=== PATIENT | male | born 1960 | race Caucasian/White ===

== ENCOUNTER 2017-11-17 10:09 | Outpatient (CLI) | payer BC, SELFPAY ==
[2017-11-17 11:25] LABS: INR 2.7 (1.0-3.5); Prothrombin Time 25.2 sec (9.3-10.8)
== END 2017-11-17 10:10 ==
PROVIDERS: PCP Family Medicine; Visit Provider Family Medicine
DX: Z79.01 Long term (current) use of anticoagulants (principal); R69 Illness, unspecified
CPT/HCPCS: 36415; 85610

== ENCOUNTER 2017-12-21 12:09 | Outpatient (CLI) | payer BC, SELFPAY ==
[2017-12-21 12:50] LABS: Abs Immature Grans 0.01 k/cumm (0.0-0.09); Absolute Basophil Count 0.01 k/cumm (0.0-0.2); Absolute Eosinophil Count 0.12 k/cumm (0.0-0.7); Absolute Lymphocyte Count 1.31 k/cumm (1.2-3.4); Absolute Monocyte Count 0.24 k/cumm (0.11-0.7); Absolute Neutrophil Count 2.76 k/cumm (1.2-6.7); Basophils % 0.2; Eosinophils % 2.7; HCT 44.8 % (40.0-50.0); HGB 14.6 g/dL (13.5-17.5); Immature Grans % 0.2; Lymphocytes % 29.4; Mean Corp. HGB Concentration 32.6 g/dL (32.0-36.0); Mean Corpuscular Hemoglobin 31.2 pg (27.0-33.0); Mean Corpuscular Volume 95.7 fL (80-95); Monocytes % 5.4; Neutrophils % 62.1; Platelet Count 180 x1000/uL (130-400); RBC 4.68 m/cumm (4.50-6.00); RBC Distribution Width 13.2 % (11.8-14.1); White Blood Cell Count 4.45 k/cumm (4.4-10.8)
[2017-12-21 13:03] LABS: INR 2.9 (1.0-3.5); Prothrombin Time 26.9 sec (9.3-10.8)
[2017-12-22 09:41] LABS: PSA, Screening 1.7 ng/ml (0-3.5)
[2017-12-22 10:31] LABS: Hepatitis C Ab w Rflx HCV PCR Negative (NEGAT)
== END 2017-12-21 12:29 ==
PROVIDERS: PCP Family Medicine; Visit Provider Family Medicine
DX: Z00.00 Encounter for general adult medical examination without abnormal findings (principal); Z11.59 Encounter for screening for other viral diseases; Z79.01 Long term (current) use of anticoagulants; Z12.5 Encounter for screening for malignant neoplasm of prostate
CPT/HCPCS: 36415; 84153; 86803; 85025; 85610

== ENCOUNTER 2018-01-20 08:37 | Outpatient (CLI) | payer BC, SELFPAY ==
[2018-01-20 09:22] LABS: INR 2.6 (1.0-3.5); Prothrombin Time 24.3 sec (9.3-10.8)
== END 2018-01-20 08:57 ==
PROVIDERS: PCP Family Medicine; Visit Provider Family Medicine
DX: Z79.01 Long term (current) use of anticoagulants (principal)
CPT/HCPCS: 36415; 85610

== ENCOUNTER 2018-02-18 07:20 | Outpatient (CLI) | payer BC, SELFPAY ==
[2018-02-18 09:07] LABS: INR 2.3 (1.0-3.5); Prothrombin Time 21.4 sec (9.3-10.8)
== END 2018-02-18 07:40 ==
PROVIDERS: PCP Family Medicine; Visit Provider Family Medicine
DX: Z79.01 Long term (current) use of anticoagulants (principal)
CPT/HCPCS: 36415; 85610

== ENCOUNTER 2018-03-21 06:31 | Outpatient (CLI) | payer BC, SELFPAY ==
[2018-03-21 08:53] LABS: INR 2.4 (1.0-3.5); Prothrombin Time 23.1 sec (9.3-10.8)
== END 2018-03-21 06:51 ==
PROVIDERS: PCP Family Medicine; Visit Provider Family Medicine
DX: Z79.01 Long term (current) use of anticoagulants (principal)
CPT/HCPCS: 36415; 85610

== ENCOUNTER 2018-04-21 02:29 | Outpatient (CLI) | payer BC, SELFPAY ==
[2018-04-21 11:58] LABS: INR 2.8 (1.0-3.5); Prothrombin Time 28.6 sec (9.3-11.0)
[2018-04-21 12:46] LABS: ALT 49 U/L (12-78); AST 27 U/L (15-37); Albumin 3.2 g/dL (3.4-5.0); Alkaline Phosphatase 68 U/L (46-116); Bilirubin, Total 0.2 mg/dL (0.2-1.0); Total Protein 7.2 g/dL (6.4-8.2)
[2018-04-21 13:04] LABS: Cholesterol 224 mg/dL (50-200); HDL Cholesterol 55 mg/dL (40-60); LDL CHOLESTEROL 147 mg/dL (<100); Triglyceride 108 mg/dL (30-150)
== END 2018-04-21 02:49 ==
PROVIDERS: PCP Family Medicine; Visit Provider Family Medicine
DX: Z79.01 Long term (current) use of anticoagulants (principal); R78.5 Finding of other psychotropic drug in blood
CPT/HCPCS: 36415; 80061; 80076; 83721; 85610

== ENCOUNTER 2018-05-23 10:22 | Outpatient (CLI) | payer BC, SELFPAY ==
[2018-05-23 12:05] LABS: INR 2.3 (0.9-1.1); Prothrombin Time 23.6 sec (9.3-11.0)
== END 2018-05-23 10:42 ==
PROVIDERS: PCP Family Medicine; Visit Provider Family Medicine
DX: Z79.01 Long term (current) use of anticoagulants (principal); R69 Illness, unspecified
CPT/HCPCS: 36415; 85610

== ENCOUNTER 2018-06-21 08:40 | Outpatient (CLI) | payer BC, SELFPAY ==
[2018-06-21 10:08] LABS: INR 2.2 (0.9-1.1); Prothrombin Time 21.9 sec (9.3-11.0)
== END 2018-06-21 09:00 ==
PROVIDERS: PCP Family Medicine; Visit Provider Family Medicine
DX: Z79.01 Long term (current) use of anticoagulants (principal)
CPT/HCPCS: 36415; 85610

== ENCOUNTER 2018-07-19 06:43 | Outpatient (CLI) | payer BC, SELFPAY ==
[2018-07-19 11:12] LABS: INR 2.4 (0.9-1.1); Prothrombin Time 23.8 sec (9.3-11.0)
== END 2018-07-19 07:03 ==
PROVIDERS: PCP Family Medicine; Visit Provider Family Medicine
DX: Z79.01 Long term (current) use of anticoagulants (principal)
CPT/HCPCS: 36415; 85610

== ENCOUNTER 2018-08-22 06:37 | Outpatient (CLI) | payer BC, SELFPAY ==
[2018-08-22 09:25] LABS: INR 2.4 (0.9-1.1); Prothrombin Time 24.6 sec (9.3-11.0)
== END 2018-08-22 06:57 ==
PROVIDERS: PCP Family Medicine; Visit Provider Family Medicine
DX: Z79.01 Long term (current) use of anticoagulants (principal)
CPT/HCPCS: 36415; 85610

== ENCOUNTER 2018-09-21 01:19 | Outpatient (CLI) | payer BC, SELFPAY ==
[2018-09-21 11:15] LABS: INR 2.6 (0.9-1.1); Prothrombin Time 26.3 sec (9.3-11.0)
== END 2018-09-21 01:39 ==
PROVIDERS: PCP Family Medicine; Visit Provider Family Medicine
DX: Z79.01 Long term (current) use of anticoagulants (principal); Z86.72 Personal history of thrombophlebitis
CPT/HCPCS: 36415; 85610

== ENCOUNTER 2018-10-24 13:05 | Outpatient (CLI) | payer BC, SELFPAY ==
[2018-10-24 15:03] LABS: INR 2.1 (0.9-1.1); Prothrombin Time 21.4 sec (9.3-11.0)
== END 2018-10-24 13:25 ==
PROVIDERS: PCP Family Medicine; Visit Provider Family Medicine
DX: Z79.01 Long term (current) use of anticoagulants (principal); Z86.72 Personal history of thrombophlebitis
CPT/HCPCS: 36415; 85610

== ENCOUNTER 2018-10-31 09:53 | Outpatient (CLI) | payer BC, SELFPAY ==
--- NOTE | 2018-10-31 14:46 | DI.RAD_ITS ---
SYMPTOM/DIAGNOSIS: KNEE PAIN BILATERAL KNEES AND LEG LENGTH EXAMINATION: Left knee: The articular surfaces are well maintained. The bones are intact and normally mineralized. The soft tissues are grossly unremarkable. IMPRESSION: No acute abnormality. Right knee: There are post surgical changes of a prior anterior cruciate ligament repair. There is moderately severe narrowing of the medial femoral tibial joint space and mild narrowing of the patellofemoral joint. Periarticular spurring is seen involving both the medial femoral tibial joint and the patellofemoral joint. No acute fracture or dislocation is appreciated. The soft tissues are unremarkable. IMPRESSION: Moderately severe degenerative changes of the right knee. LEG LENGTH: The right lower extremity measures 105.2 cm. The left lower extremity measures 106.9 cm. Degenerative changes are seen in the right knee with findings of a prior right anterior cruciate ligament repair.
== END 2018-10-31 10:13 ==
PROVIDERS: PCP Family Medicine; Visit Provider Student in an Organized Health Care Education/Training Program
DX: M25.561 Pain in right knee (principal); M17.11 Unilateral primary osteoarthritis, right knee; M21.70 Unequal limb length (acquired), unspecified site; Z98.890 Other specified postprocedural states
CPT/HCPCS: 73560; 77073

== ENCOUNTER 2018-11-17 01:15 | Outpatient (CLI) | payer BC, SELFPAY ==
[2018-11-17 14:11] LABS: INR 2.2 (0.9-1.1); Prothrombin Time 22.1 sec (9.3-11.0)
== END 2018-11-17 01:35 ==
PROVIDERS: PCP Family Medicine; Visit Provider Family Medicine
DX: Z79.01 Long term (current) use of anticoagulants (principal)
CPT/HCPCS: 36415; 85610

== ENCOUNTER 2018-12-20 01:12 | Outpatient (CLI) | payer BC, SELFPAY ==
[2018-12-20 10:13] LABS: INR 2.2 (0.9-1.1); Prothrombin Time 22.1 sec (9.3-11.0)
== END 2018-12-20 01:32 ==
PROVIDERS: PCP Family Medicine; Visit Provider Family Medicine
DX: Z79.01 Long term (current) use of anticoagulants (principal)
CPT/HCPCS: 36415; 85610

== ENCOUNTER 2019-02-17 10:08 | Outpatient (CLI) | payer BC, SELFPAY ==
[2019-02-17 14:24] LABS: INR 2.3 (0.9-1.1); Prothrombin Time 22.7 sec (9.3-11.0)
== END 2019-02-17 10:28 ==
PROVIDERS: PCP Family Medicine; Visit Provider Family Medicine
DX: I82.5Z9 Chronic embolism and thrombosis of unspecified deep veins of unspecified distal lower extremity (principal); Z79.01 Long term (current) use of anticoagulants
CPT/HCPCS: 36415; 85610

== ENCOUNTER 2019-03-23 12:57 | Outpatient (CLI) | payer BC, SELFPAY ==
[2019-03-23 10:59] LABS: INR 2.5 (0.9-1.1); Prothrombin Time 24.6 sec (9.3-11.0)
== END 2019-03-23 13:17 ==
PROVIDERS: PCP Family Medicine; Visit Provider Family Medicine
DX: I82.492 Acute embolism and thrombosis of other specified deep vein of left lower extremity (principal); Z79.01 Long term (current) use of anticoagulants
CPT/HCPCS: 36415; 85610

== ENCOUNTER 2019-04-20 08:09 | Outpatient (CLI) | payer BC, SELFPAY ==
[2019-04-20 11:24] LABS: INR 2.4 (0.9-1.1); Prothrombin Time 23.6 sec (9.3-11.0)
== END 2019-04-20 08:29 ==
PROVIDERS: PCP Family Medicine; Visit Provider Family Medicine
DX: I82.492 Acute embolism and thrombosis of other specified deep vein of left lower extremity (principal); Z79.01 Long term (current) use of anticoagulants
CPT/HCPCS: 36415; 85610

== ENCOUNTER 2019-05-29 07:48 | Outpatient (CLI) | payer BC, SELFPAY ==
[2019-05-29 08:57] LABS: INR 2.5 (0.9-1.1); Prothrombin Time 24.4 sec (9.3-11.0)
== END 2019-05-29 08:08 ==
PROVIDERS: PCP Family Medicine; Visit Provider Family Medicine
DX: I82.492 Acute embolism and thrombosis of other specified deep vein of left lower extremity (principal); Z79.01 Long term (current) use of anticoagulants
CPT/HCPCS: 36415; 85610

== ENCOUNTER 2019-06-20 11:03 | Outpatient (CLI) | payer BC, SELFPAY ==
[2019-06-20 13:27] LABS: INR 1.8 (0.9-1.1); Prothrombin Time 18.2 sec (9.3-11.0)
== END 2019-06-20 11:23 ==
PROVIDERS: PCP Family Medicine; Visit Provider Family Medicine
DX: I82.492 Acute embolism and thrombosis of other specified deep vein of left lower extremity (principal); Z79.01 Long term (current) use of anticoagulants
CPT/HCPCS: 36415; 85610

== ENCOUNTER 2019-08-21 03:27 | Outpatient (CLI) | payer BC, SELFPAY ==
[2019-08-21 16:52] LABS: INR 2.7 (0.9-1.1); Prothrombin Time 26.8 sec (9.3-11.0)
== END 2019-08-21 03:47 ==
PROVIDERS: PCP Family Medicine; Visit Provider Family Medicine
DX: I82.492 Acute embolism and thrombosis of other specified deep vein of left lower extremity (principal); Z79.01 Long term (current) use of anticoagulants
CPT/HCPCS: 36415; 85610

== ENCOUNTER 2019-09-18 10:13 | Outpatient (CLI) | payer BC, SELFPAY ==
[2019-09-18 15:41] LABS: INR 2.2 (0.9-1.1); Prothrombin Time 21.3 sec (9.3-11.0)
== END 2019-09-18 10:33 ==
PROVIDERS: PCP Family Medicine; Visit Provider Family Medicine
DX: I82.492 Acute embolism and thrombosis of other specified deep vein of left lower extremity (principal); Z79.01 Long term (current) use of anticoagulants
CPT/HCPCS: 36415; 85610

== ENCOUNTER 2019-10-24 03:27 | Outpatient (CLI) | payer BC, SELFPAY ==
[2019-10-24 08:31] LABS: INR 2.8 (0.9-1.1); Prothrombin Time 27.1 sec (9.3-11.0)
== END 2019-10-24 03:47 ==
PROVIDERS: PCP Family Medicine; Visit Provider Family Medicine
DX: I82.492 Acute embolism and thrombosis of other specified deep vein of left lower extremity (principal)
CPT/HCPCS: 36415; 85610

== ENCOUNTER 2019-11-20 02:08 | Outpatient (CLI) | payer BC, SELFPAY ==
[2019-11-20 12:29] LABS: Prothrombin Time 28.9 sec (9.3-11.0)
== END 2019-11-20 02:28 ==
PROVIDERS: PCP Family Medicine; Visit Provider Family Medicine
DX: I82.409 Acute embolism and thrombosis of unspecified deep veins of unspecified lower extremity (principal)
CPT/HCPCS: 36415; 85610

== ENCOUNTER 2019-12-05 02:55 | Outpatient (CLI) | payer BC, SELFPAY ==
[2019-12-05 12:48] LABS: INR 2.9 (0.9-1.1); Prothrombin Time 28.6 sec (9.3-11.0)
== END 2019-12-05 03:15 ==
PROVIDERS: PCP Family Medicine; Visit Provider Family Medicine
DX: I82.492 Acute embolism and thrombosis of other specified deep vein of left lower extremity (principal)
CPT/HCPCS: 36415; 85610

== ENCOUNTER 2020-01-18 05:03 | Outpatient (CLI) | payer BC, SELFPAY ==
[2020-01-18 15:52] LABS: INR 2.5 (0.9-1.1); Prothrombin Time 24.4 sec (9.3-11.0)
== END 2020-01-18 05:23 ==
PROVIDERS: PCP Family Medicine; Visit Provider Family Medicine
DX: I82.409 Acute embolism and thrombosis of unspecified deep veins of unspecified lower extremity (principal); Z79.01 Long term (current) use of anticoagulants
CPT/HCPCS: 36415; 85610

== ENCOUNTER 2020-02-23 03:30 | Outpatient (CLI) | payer BC, SELFPAY ==
[2020-02-23 15:15] LABS: INR 2.2 (0.9-1.1); Prothrombin Time 22.1 sec (9.3-11.0)
== END 2020-02-23 03:50 ==
PROVIDERS: PCP Family Medicine; Visit Provider Family Medicine
DX: I82.409 Acute embolism and thrombosis of unspecified deep veins of unspecified lower extremity (principal); Z79.01 Long term (current) use of anticoagulants
CPT/HCPCS: 36415; 85610

== ENCOUNTER 2020-03-19 03:54 | Outpatient (CLI) | payer BC, SELFPAY ==
[2020-03-19 15:17] LABS: INR 3.4 (0.9-1.1); Prothrombin Time 32.9 sec (9.3-11.0)
== END 2020-03-19 04:14 ==
PROVIDERS: PCP Family Medicine; Visit Provider Family Medicine
DX: Z79.01 Long term (current) use of anticoagulants (principal)
CPT/HCPCS: 36415; 85610

== ENCOUNTER 2020-03-27 03:40 | Outpatient (CLI) | payer BC, SELFPAY ==
[2020-03-27 15:13] LABS: INR 2.2 (0.9-1.1); Prothrombin Time 21.4 sec (9.3-11.0)
== END 2020-03-27 04:00 ==
PROVIDERS: PCP Family Medicine; Visit Provider Family Medicine
DX: I82.492 Acute embolism and thrombosis of other specified deep vein of left lower extremity (principal); Z79.01 Long term (current) use of anticoagulants
CPT/HCPCS: 36415; 85610

== ENCOUNTER 2020-04-16 03:22 | Outpatient (CLI) | payer BC, SELFPAY ==
[2020-04-16 09:35] LABS: Prothrombin Time 19.8 sec (9.3-11.0)
== END 2020-04-16 03:42 ==
PROVIDERS: PCP Family Medicine; Visit Provider Family Medicine
DX: I82.492 Acute embolism and thrombosis of other specified deep vein of left lower extremity (principal); Z79.01 Long term (current) use of anticoagulants
CPT/HCPCS: 36415; 85610

== ENCOUNTER 2020-05-15 03:18 | Outpatient (CLI) | payer BC, SELFPAY ==
[2020-05-15 15:29] LABS: INR 1.8 (0.9-1.1); Prothrombin Time 18.1 sec (9.3-11.0)
== END 2020-05-15 03:38 ==
PROVIDERS: PCP Family Medicine; Visit Provider Family Medicine
DX: Z79.01 Long term (current) use of anticoagulants (principal)
CPT/HCPCS: 36415; 85610

== ENCOUNTER 2020-06-17 04:46 | Outpatient (CLI) | payer BC, SELFPAY ==
[2020-06-17 15:56] LABS: INR 2.2 (0.9-1.1)
== END 2020-06-17 04:47 | disposition home or self-care (01) ==
LOC: LBO 04:46
PROVIDERS: PCP Family Medicine; Visit Provider Family Medicine
DX: Z79.01 Long term (current) use of anticoagulants (principal); I82.492 Acute embolism and thrombosis of other specified deep vein of left lower extremity
CPT/HCPCS: 36415; 85610

== ENCOUNTER 2020-08-23 02:01 | Outpatient (CLI) | payer BC, SELFPAY ==
[2020-08-23 15:40] LABS: Prothrombin Time 19.3 sec (9.3-11.0)
[2020-08-23 16:01] LABS: INR 1.9 (0.9-1.1)
== END 2020-08-23 02:02 | disposition home or self-care (01) ==
LOC: LBO 02:02
PROVIDERS: PCP Family Medicine; Visit Provider Family Medicine
DX: I82.492 Acute embolism and thrombosis of other specified deep vein of left lower extremity (principal); Z79.01 Long term (current) use of anticoagulants
CPT/HCPCS: 36415; 85610

== ENCOUNTER 2020-09-20 03:03 | Outpatient (CLI) | payer BC, SELFPAY ==
[2020-09-20 15:07] LABS: INR 2.4 (0.9-1.1); Prothrombin Time 23.5 sec (9.3-11.0)
== END 2020-09-20 03:04 | disposition home or self-care (01) ==
LOC: LBO 03:04
PROVIDERS: PCP Family Medicine; Visit Provider Family Medicine
DX: I82.409 Acute embolism and thrombosis of unspecified deep veins of unspecified lower extremity (principal)
CPT/HCPCS: 36415; 85610

== ENCOUNTER 2020-10-22 04:18 | Outpatient (CLI) | payer BC, SELFPAY ==
[2020-10-22 16:03] LABS: Prothrombin Time 29.1 sec (9.3-11.0)
== END 2020-10-22 04:19 | disposition home or self-care (01) ==
LOC: LBO 04:18
PROVIDERS: PCP Family Medicine; Visit Provider Family Medicine
DX: I82.492 Acute embolism and thrombosis of other specified deep vein of left lower extremity (principal); Z79.01 Long term (current) use of anticoagulants
CPT/HCPCS: 36415; 85610

== ENCOUNTER 2020-11-07 08:48 | Outpatient (CLI) | payer BC, SELFPAY ==
[2020-11-07 15:47] LABS: INR 2.9 (0.9-1.1); Prothrombin Time 28.3 sec (9.3-11.0)
== END 2020-11-07 08:49 | disposition home or self-care (01) ==
LOC: LBO 09:22
PROVIDERS: PCP Family Medicine; Visit Provider Family Medicine
DX: I82.492 Acute embolism and thrombosis of other specified deep vein of left lower extremity (principal); Z79.01 Long term (current) use of anticoagulants
CPT/HCPCS: 36415; 85610

== ENCOUNTER 2021-01-20 04:03 | Outpatient (CLI) | payer BC, SELFPAY ==
[2021-01-20 07:52] LABS: Prothrombin Time 19.8 sec (9.3-11.0)
== END 2021-01-20 04:04 | disposition home or self-care (01) ==
PROVIDERS: PCP Family Medicine; Visit Provider Family Medicine
DX: Z79.01 Long term (current) use of anticoagulants (principal)
CPT/HCPCS: 36415; 85610

== ENCOUNTER 2021-02-20 03:00 | Outpatient (CLI) | payer BC, SELFPAY ==
[2021-02-20 14:15] LABS: INR 2.4 (0.9-1.1); Prothrombin Time 23.6 sec (9.3-11.0)
== END 2021-02-20 03:01 | disposition home or self-care (01) ==
LOC: LBO 03:00
PROVIDERS: PCP Family Medicine; Visit Provider Family Medicine
DX: I82.492 Acute embolism and thrombosis of other specified deep vein of left lower extremity (principal); Z79.01 Long term (current) use of anticoagulants
CPT/HCPCS: 36415; 85610

== ENCOUNTER 2021-05-23 01:41 | Outpatient (CLI) | payer BC, SELFPAY ==
[2021-05-23 12:14] LABS: INR 2.9 (0.9-1.1); Prothrombin Time 28.4 sec (9.3-11.0)
== END 2021-05-23 01:42 | disposition home or self-care (01) ==
LOC: LBO 01:41
PROVIDERS: PCP Family Medicine; Visit Provider Family Medicine
DX: I82.5Z9 Chronic embolism and thrombosis of unspecified deep veins of unspecified distal lower extremity (principal)
CPT/HCPCS: 36415; 85610

== ENCOUNTER 2021-06-20 03:44 | Outpatient (CLI) | payer BC, SELFPAY ==
[2021-06-20 07:52] LABS: INR 2.6 (0.9-1.1); Prothrombin Time 25.9 sec (9.3-11.0)
== END 2021-06-20 03:45 | disposition home or self-care (01) ==
LOC: LBO 03:44
PROVIDERS: PCP Family Medicine; Visit Provider Family Medicine
DX: I82.5Z9 Chronic embolism and thrombosis of unspecified deep veins of unspecified distal lower extremity (principal)
CPT/HCPCS: 36415; 85610

== ENCOUNTER 2021-07-28 02:50 | Outpatient (CLI) | payer BC, SELFPAY | END 2021-07-28 02:51 | disposition home or self-care (01) | LOC: LBO 02:50 | PROVIDERS: PCP Family Medicine; Visit Provider Family Medicine ==

== ENCOUNTER 2021-08-20 01:43 | Outpatient (CLI) | payer BC, SELFPAY ==
[2021-08-20 07:56] LABS: Prothrombin Time 20.2 sec (9.3-11.0)
== END 2021-08-20 01:44 | disposition home or self-care (01) ==
LOC: LBO 01:43
PROVIDERS: PCP Family Medicine; Visit Provider Family Medicine
DX: I82.492 Acute embolism and thrombosis of other specified deep vein of left lower extremity (principal); Z79.01 Long term (current) use of anticoagulants
CPT/HCPCS: 36415; 85610

== ENCOUNTER 2021-09-24 03:46 | Outpatient (CLI) | payer BC, SELFPAY ==
[2021-09-24 08:51] LABS: INR 2.5 (0.9-1.1)
== END 2021-09-24 03:47 | disposition home or self-care (01) ==
LOC: LBO 03:46
PROVIDERS: PCP Family Medicine; Visit Provider Family Medicine
DX: Z79.01 Long term (current) use of anticoagulants (principal); I82.492 Acute embolism and thrombosis of other specified deep vein of left lower extremity
CPT/HCPCS: 36415; 85610

== ENCOUNTER 2021-10-17 02:57 | Outpatient (CLI) | payer BC, SELFPAY ==
[2021-10-17 13:34] LABS: INR 2.1 (0.9-1.1); Prothrombin Time 20.3 sec (9.3-11.0)
== END 2021-10-17 02:58 | disposition home or self-care (01) ==
LOC: LBO 02:57
PROVIDERS: PCP Family Medicine; Visit Provider Family Medicine
DX: I82.492 Acute embolism and thrombosis of other specified deep vein of left lower extremity (principal); Z79.01 Long term (current) use of anticoagulants
CPT/HCPCS: 36415; 85610

== ENCOUNTER 2021-12-26 01:53 | Outpatient (CLI) | payer BC, SELFPAY ==
[2021-12-26 14:43] LABS: INR 2.5 (0.9-1.1)
== END 2021-12-26 01:54 | disposition home or self-care (01) ==
LOC: LBO 01:53
PROVIDERS: PCP Family Medicine; Visit Provider Family Medicine
DX: I82.492 Acute embolism and thrombosis of other specified deep vein of left lower extremity (principal)
CPT/HCPCS: 36415; 85610

== ENCOUNTER 2022-02-20 02:04 | Outpatient (CLI) | payer BC, SELFPAY ==
[2022-02-20 13:53] LABS: Prothrombin Time 19.4 sec (9.3-11.0)
== END 2022-02-20 02:05 | disposition home or self-care (01) ==
LOC: LBO 02:09
PROVIDERS: PCP Family Medicine; Visit Provider Family Medicine
DX: I82.5Z9 Chronic embolism and thrombosis of unspecified deep veins of unspecified distal lower extremity (principal); Z79.01 Long term (current) use of anticoagulants
CPT/HCPCS: 36415; 85610

== ENCOUNTER 2022-05-21 04:21 | Outpatient (CLI) | payer BC, SELFPAY ==
[2022-05-21 09:12] LABS: INR 2.4 (0.9-1.1); Prothrombin Time 22.6 sec (9.3-11.0)
== END 2022-05-21 04:22 | disposition home or self-care (01) ==
LOC: LBO 04:21
PROVIDERS: PCP Family Medicine; Visit Provider Family Medicine
DX: Z79.01 Long term (current) use of anticoagulants (principal); I82.492 Acute embolism and thrombosis of other specified deep vein of left lower extremity
CPT/HCPCS: 36415; 85610

== ENCOUNTER 2022-07-22 03:29 | Outpatient (CLI) | payer BC, SELFPAY ==
[2022-07-22 07:45] LABS: INR 2.1 (0.9-1.1); Prothrombin Time 21.3 sec (9.3-11.0)
== END 2022-07-22 03:30 | disposition home or self-care (01) ==
LOC: LBO 03:29
PROVIDERS: PCP Family Medicine; Visit Provider Family Medicine
DX: I82.492 Acute embolism and thrombosis of other specified deep vein of left lower extremity (principal); Z79.01 Long term (current) use of anticoagulants
CPT/HCPCS: 36415; 85610

== ENCOUNTER 2022-09-21 03:33 | Outpatient (CLI) | payer BC, SELFPAY ==
[2022-09-21 09:36] LABS: INR 1.5 (0.9-1.1); Prothrombin Time 15.3 sec (9.3-11.0)
== END 2022-09-21 03:34 | disposition home or self-care (01) ==
LOC: LBO 03:34
PROVIDERS: PCP Family Medicine; Visit Provider Family Medicine
DX: Z79.01 Long term (current) use of anticoagulants (principal)
CPT/HCPCS: 36415; 85610

== ENCOUNTER 2022-10-07 02:42 | Outpatient (CLI) | payer BC, SELFPAY ==
[2022-10-07 08:45] LABS: INR 2.2 (0.9-1.1); Prothrombin Time 21.8 sec (9.3-11.0)
== END 2022-10-07 02:43 | disposition home or self-care (01) ==
LOC: LBO 02:42
PROVIDERS: PCP Family Medicine; Visit Provider Family Medicine
DX: I82.492 Acute embolism and thrombosis of other specified deep vein of left lower extremity (principal); Z79.01 Long term (current) use of anticoagulants
CPT/HCPCS: 36415; 85610

== ENCOUNTER 2022-12-01 03:25 | Outpatient (CLI) | payer BC, SELFPAY ==
[2022-12-01 07:36] LABS: Abs Immature Grans 0.01 10^3/uL (0.0-0.06); Absolute Basophil Count 0.02 10^3/uL (0.0-0.2); Absolute Eosinophil Count 0.16 10^3/uL (0.0-0.7); Absolute Lymphocyte Count 1.37 10^3/uL (1.2-3.4); Absolute Monocyte Count 0.35 10^3/uL (0.1-0.8); Absolute Neutrophil Count 3.02 10^3/uL (1.2-6.7); Basophils % 0.4; ESR 35 mm/hr (0-20); Eosinophils % 3.2; HCT 44.9 % (40.0-50.0); Immature Grans % 0.2; Lymphocytes % 27.8; MCH 31.5 pg (27.0-33.0); MCHC 33.4 % (32.0-36.0); MCV 94 fL (80-95); MPV 10.8 fL (8.0-11.0); Monocytes % 7.1; Neutrophils % 61.3; Platelet Count 197 10^3/uL (130-400); RBC 4.76 10^6/uL (4.36-5.78); RDW 12.9 % (11.8-14.1); RDW-SD 44.5 fL; WBC 4.93 10^3/uL (4.4-10.8)
[2022-12-01 08:43] LABS: ALT 33 U/L (16-63); AST 20 U/L (15-37); Alkaline Phosphatase 64 U/L (46-116); Anion Gap 6.9 mmol/L (3-11); BUN 15 mg/dL (7-18); Bilirubin, Total 0.4 mg/dL (0.2-1.0); CO2 27.1 mmol/L (21.0-32.0); CREATININE 1.1 mg/dL (0.70-1.30); Calcium 8.8 mg/dL (8.5-10.1); Calculated LDL 134 mg/dL (<100); Chloride 109 mmol/L (98-107); Cholesterol 219 mg/dL (<200); Estimated GFR 75.43 (mL/min/1.73m2); Glucose 97 mg/dL (74-106); HDL Cholesterol 59 mg/dL (40-60); Potassium 4.4 mmol/L (3.5-5.1); Sodium 143 mmol/L (136-145); TSH 2.96 uIU/mL (0.36-3.74); Total Protein 7.2 g/dL (6.4-8.2); Triglyceride 134 mg/dL (<150); Vitamin B12 450 pg/mL (193-986)
[2022-12-01 09:36] LABS: Hemoglobin A1C 5.5 % (<5.7)
== END 2022-12-01 03:26 | disposition home or self-care (01) ==
LOC: LBO 03:25
PROVIDERS: PCP Family Medicine; Visit Provider Family Medicine
DX: G62.9 Polyneuropathy, unspecified (principal); Z00.00 Encounter for general adult medical examination without abnormal findings
CPT/HCPCS: 36415; 80053; 80061; 85652; 82607; 83036; 84154; 84443; 85025

== ENCOUNTER 2022-12-23 04:23 | Outpatient (CLI) | payer BC, SELFPAY ==
[2022-12-23 12:56] LABS: INR 1.7 (0.9-1.1); Prothrombin Time 17.5 sec (9.3-11.0)
== END 2022-12-23 04:24 | disposition home or self-care (01) ==
LOC: LBO 04:23
PROVIDERS: PCP Family Medicine; Visit Provider Family Medicine
DX: I82.492 Acute embolism and thrombosis of other specified deep vein of left lower extremity (principal); Z79.01 Long term (current) use of anticoagulants
CPT/HCPCS: 36415; 85610

== ENCOUNTER 2023-02-17 05:42 | Outpatient (CLI) | payer BC, SELFPAY ==
[2023-02-17 12:20] LABS: INR 2.8 (0.9-1.1); Prothrombin Time 25.9 sec (9.1-11.1)
== END 2023-02-17 05:43 | disposition home or self-care (01) ==
LOC: LBO 05:43
PROVIDERS: PCP Family Medicine; Visit Provider Family Medicine
DX: Z79.01 Long term (current) use of anticoagulants (principal)
CPT/HCPCS: 36415; 85610

== ENCOUNTER 2023-03-19 01:56 | Outpatient (CLI) | payer BC, SELFPAY ==
[2023-03-19 07:56] LABS: INR 2.7 (0.9-1.1); Prothrombin Time 24.6 sec (9.1-11.1)
== END 2023-03-19 01:57 | disposition home or self-care (01) ==
LOC: LBO 01:57
PROVIDERS: PCP Family Medicine; Visit Provider Family Medicine
DX: Z79.01 Long term (current) use of anticoagulants (principal)
CPT/HCPCS: 36415; 85610

== ENCOUNTER 2023-04-21 04:51 | Outpatient (CLI) | payer BC, SELFPAY ==
[2023-04-21 07:50] LABS: INR 2.4 (0.9-1.1); Prothrombin Time 22.3 sec (9.1-11.1)
== END 2023-04-21 04:52 | disposition home or self-care (01) ==
LOC: LBO 04:51
PROVIDERS: PCP Family Medicine; Visit Provider Family Medicine
DX: Z79.01 Long term (current) use of anticoagulants (principal); Z86.718 Personal history of other venous thrombosis and embolism
CPT/HCPCS: 36415; 85610

== ENCOUNTER 2023-05-20 04:37 | Outpatient (CLI) | payer BC, SELFPAY ==
[2023-05-20 07:56] LABS: INR 2.4 (0.9-1.1); Prothrombin Time 22.2 sec (9.1-11.1)
== END 2023-05-20 04:38 | disposition home or self-care (01) ==
LOC: LBO 04:37
PROVIDERS: PCP Family Medicine; Visit Provider Family Medicine
DX: Z79.01 Long term (current) use of anticoagulants (principal)
CPT/HCPCS: 36415; 85610

== ENCOUNTER 2023-06-21 15:36 | Outpatient (CLI) | payer BC, SELFPAY ==
--- NOTE | 2023-06-21 13:30 | DI.RAD_ITS ---
Exam(s) XR KNEE LT 1V XR STANDING ALIGNMENT XR KNEE RT 1V EXAM: XR STANDING ALIGNMENT and XR knee bilateral 1 V CLINICAL HISTORY: TKR planning. TECHNIQUE: 2D digital imaging was performed. Six images were obtained. COMPARISON: CR XR knee LT 2V AP,lat from 10/31/2018 CR XR knee RT 2V AP,lat from 10/31/2018 CR XR standing alignment from 10/31/2018 FINDINGS: BONES: The hips are well maintained. In the right knee, there are findings of a prior ACL repair. M oderately severe degenerative changes are seen in the knee characterized by joint space narrowing and osteophytes. The findings are most marked in the medial femoral tibial and patellofemoral joints. There is a tiny joint effusion on the right. In the left knee, there is mild narrowing of the medial femoral tibial joint. The articular surfaces are otherwise well maintained. The ankles are well ma intained.There is no significant leg length discrepancy. SOFT TISSUE: Normal. IMPRESSION: Arthrosis of the knees bilaterally, right greater than left. DATA REPOSITORY: RADIATION DOSE DELIVERED:
== END 2023-06-21 15:37 | disposition home or self-care (01) ==
LOC: DIORS 15:37
PROVIDERS: PCP Family Medicine; Visit Provider Physician Assistant
DX: M17.12 Unilateral primary osteoarthritis, left knee (principal); M17.11 Unilateral primary osteoarthritis, right knee
CPT/HCPCS: 73560; 77073

== ENCOUNTER 2023-06-22 04:34 | Outpatient (CLI) | payer BC, SELFPAY ==
[2023-06-22 07:46] LABS: INR 2.2 (0.9-1.1); Prothrombin Time 20.8 sec (9.1-11.1)
== END 2023-06-22 04:35 | disposition home or self-care (01) ==
LOC: LBO 04:34
PROVIDERS: PCP Family Medicine; Visit Provider Family Medicine
DX: Z79.01 Long term (current) use of anticoagulants (principal)
CPT/HCPCS: 36415; 85610

== ENCOUNTER 2023-09-10 02:29 | Outpatient (CLI) | payer BC, SELFPAY ==
[2023-09-10 10:13] LABS: HCT 47.4 % (40.0-50.0); HGB 15.2 g/dL (13.5-17.5); MCH 31.3 pg (27.0-33.0); MCHC 32.1 % (32.0-36.0); MCV 98 fL (80-95); MPV 10.8 fL (8.0-11.0); Platelet Count 197 10^3/uL (130-400); RBC 4.86 10^6/uL (4.36-5.78); RDW 12.9 % (11.8-14.1); RDW-SD 46.8 fL; WBC 4.45 10^3/uL (4.4-10.8)
[2023-09-10 10:33] LABS: Anion Gap 8.6 mmol/L (3-11); BUN 17 mg/dL (7-18); CO2 24.4 mmol/L (21.0-32.0); CREATININE 1.2 mg/dL (0.70-1.30); Calcium 8.9 mg/dL (8.5-10.1); Chloride 108 mmol/L (98-107); Estimated GFR 67.53 (mL/min/1.73m2); Glucose 106 mg/dL (74-106); Potassium 4.4 mmol/L (3.5-5.1); Sodium 141 mmol/L (136-145)
== END 2023-09-10 02:30 | disposition home or self-care (01) ==
LOC: LBO 02:29
PROVIDERS: PCP Family Medicine; Visit Provider Student in an Organized Health Care Education/Training Program
DX: M17.11 Unilateral primary osteoarthritis, right knee (principal); Z01.818 Encounter for other preprocedural examination
CPT/HCPCS: 36415; 80048; 85027

== ENCOUNTER 2023-09-20 04:55 | Outpatient (CLI) | payer BC, SELFPAY ==
[2023-09-20 11:47] LABS: INR 1.1 (0.9-1.1); Prothrombin Time 11.3 sec (9.1-11.1)
== END 2023-09-20 04:56 | disposition home or self-care (01) ==
LOC: LBO 04:55
PROVIDERS: PCP Family Medicine; Visit Provider Family Medicine
DX: Z79.01 Long term (current) use of anticoagulants (principal)
CPT/HCPCS: 36415; 85610

== ENCOUNTER 2023-09-21 07:05 | Day surgery (SDC) | payer BC, SELFPAY ==
[2023-09-21] VITALS (32 sets, daily range): BP systolic 131–179; BP diastolic 78–96; PULSE 49–64; RESP 11–23; TEMP 35.9–36.6; O2SAT 92–100; BMI 31.1
[2023-09-21] MEDS: Acetaminophen 500 MG TAB 1000 MG PO (08:04)
[2023-09-21] MEDS: Celecoxib 200 MG CAP 400 MG PO (08:04)
[2023-09-21] MEDS: Lactated Ringers 1,000 ML 80 ML IV (08:05)
[2023-09-21] MEDS: Gabapentin 300 MG CAP PO (08:05)
--- NOTE | 2023-09-21 08:12 | ANES.PREOP_ITS ---
General Info Date of Service Date Performed: 09/21/23 Height: 6 ft 4 in Weight: 116 kg Body Mass Index (BMI): 31.1 Surgical Procedure: Operation Date: 09/21/23 09:25 Proposed Procedure Side Surgeon p Knee Total Arthroplasty Right Rick Das MD Meds Allergies and Home Medications Allergies Allergy/AdvReac Type Severity Reaction Status Date / Time No Known Allergies Allergy Unverified 09/21/23 07:51 Home Medication Medication Instructions Recorded warfarin 6 mg tablet (Coumadin) 1 tab PO DAILY 12/28/14 acetaminophen 325 mg tablet 650 mg (2 x 325 mg) PO Q4H PRN PRN 06/18/15 (Tylenol) #200 tabs atorvastatin 20 mg tablet 20 mg PO QPM 09/20/23 Current Visit Medications: Current Medications Generic Name Dose Route Start Last Admin Trade Name Freq PRN Reason Stop Dose Admin Acetaminophen 1,000 mg 09/21/23 06:00 09/21/23 08:04 Acetaminophen 500 Mg Tab PO 09/21/23 23:59 1,000 mg PREOP SHEREE Administration Acetaminophen 1,000 mg 09/21/23 14:00 Acetaminophen 500 Mg Tab PO 10/21/23 13:59 TID SHEREE Celecoxib 400 mg 09/21/23 06:00 09/21/23 08:04 Celecoxib 200 Mg Cap PO 09/21/23 23:59 400 mg PREOP SHEREE Administration Celecoxib 200 mg 09/21/23 20:00 Celecoxib 200 Mg Cap PO 10/21/23 19:59 BID SHEREE Gabapentin 300 mg 09/21/23 06:00 09/21/23 08:05 Gabapentin 300 Mg Cap PO 09/21/23 23:59 300 mg PREOP SHEREE Administration Hydromorphone HCl 0.5 mg 09/21/23 07:22 Hydromorphone 2 Mg/Ml Syr IVP 10/21/23 07:21 Q2H PRN PRN Ringer's Solution 1,000 mls @ 80 mls/hr 09/21/23 06:00 09/21/23 08:05 IV 09/21/23 23:59 80 mls/hr INFUSION SHEREE Administration Cefazolin Sodium 3,000 mg/ 100 mls @ 200 mls/hr 09/21/23 06:00 Sodium Chloride IVPB 09/21/23 23:59 PREOP SHEREE Tranexamic Acid/Sodium Chloride 1,000 mg in 100 mls @ 600 mls/hr 09/21/23 06:00 IVPB 09/21/23 23:59 PREOP SHEREE Cefazolin Sodium/Dextrose 1 gm in 50 mls @ 100 mls/hr 09/21/23 14:00 Ancef Duplex IVPB 09/22/23 06:29 Q8H SHEREE IV Miscellaneous Supplies 1 each 09/21/23 06:00 Iv Access IV 09/21/23 23:59 DIRECTED SHEREE Oxycodone HCl 0 mg 09/21/23 07:22 Oxycodone 5 Mg Tab PO 10/21/23 07:21 Q3H PRN PRN Pain Sodium Chloride 0 ml 09/21/23 06:00 Normal Saline Flush 10 Ml Syr IV 09/21/23 23:59 PRN PRN Sodium Chloride 0 ml 09/21/23 06:00 Normal Saline 10 Ml Vial IJ 09/21/23 23:59 DIRECTED PRN Sterile Water 0 ml 09/21/23 06:00 Water,Injection,Sterile 10 Ml Vial IJ 09/21/23 23:59 DIRECTED PRN PFSH Active Problems Active Problems: Problem Status Onset Code Primary osteoarthritis of left knee M17.12 Primary osteoarthritis of right knee M17.11 Cubital tunnel syndrome on right G56.21 Lateral epicondylitis of right elbow M77.11 Medical History Medical History DVT of leg (deep venous thrombosis) Pulmonary embolism Surgical History Surgical History Lisfranc's sprain with surgical repair S/P ACL repair x2 right History of colonoscopy Tobacco Smoking/Tobacco Use Status: Never Alcohol Alcohol Intake: current Alcohol intake frequency: a few times a month Alcohol type: beer Substance Use Substance use: Never Vital Signs and Lab Results Vital Signs Most Recent Vital Signs in EMR: Most Recent Vital Signs Temp Pulse Resp BP Pulse Ox 36.5 C 59 L 16 158/84 H 92 09/21/23 07:53 09/21/23 07:53 09/21/23 07:53 09/21/23 07:53 09/21/23 07:53 Lab Results Blood Type / Crossmatch: No Data to Display Complete Blood Count: White Blood Count 4.45 10^3/uL (4.4-10.8) 09/10/23 09:54 Red Blood Count 4.86 10^6/uL (4.36-5.78) 09/10/23 09:54 Hemoglobin 15.2 g/dL (13.5-17.5) 09/10/23 09:54 Hematocrit 47.4 % (40.0-50.0) 09/10/23 09:54 Platelet Count 197 10^3/uL (130-400) 09/10/23 09:54 Complete Metabolic Panel: Sodium 141 mmol/L (136-145) 09/10/23 09:54 Potassium 4.4 mmol/L (3.5-5.1) 09/10/23 09:54 Chloride 108 mmol/L (98-107) H 09/10/23 09:54 Carbon Dioxide 24.4 mmol/L (21.0-32.0) 09/10/23 09:54 BUN 17 mg/dL (7-18) 09/10/23 09:54 Creatinine 1.2 mg/dL (0.70-1.30) 09/10/23 09:54 Est GFR (CKD-EPI 2020) 67.53 (mL/min/1.73m2) 09/10/23 09:54 Calcium 8.9 mg/dL (8.5-10.1) 09/10/23 09:54 Glucose 106 mg/dL (74-106) 09/10/23 09:54 Liver Function Panel: No Data to Display Coagulation Panel: INR International Normalized Ratio 1.1 (0.9-1.1) 09/20/23 11:3 0 Prothrombin Time 11.3 sec (9.1-11.1) H 09/20/23 11:30 Cardiac Panel: No Data to Display Arterial Blood Gas: No Data to Display Venous Blood Gas: No Data to Display Pancreas Panel: No Data to Display Thyroid Panel: No Data to Display Infectious Disease: No Data to Display Blood Cultures: No Data to Display Toxicology Panel: No Data to Display Anesthesia Assessment and Plan Anesthesia History Personal History: No History of Anesthesia Complications Family History: No Family History of Anesthesia Complications Exercise Tolerance Exercise Tolerance: Metabolic Equivalents>4 Pertinent Negatives Pertinent Negatives: No Symptoms of GERD, No Major Cardiovascular Symptoms or Complaints and No History of CVA/TIA Cardiac & Pulmonary Exam Cardiac Exam: Normal S1/S2 Heart Sounds Pulmonary Exam: Clear Bilateral Breath Sounds Implantable Cardiac Device Does patient have a Pacemaker or an ICD?: No Airway Exam Known Difficult Airway: No Mallampati Class: 2 Mouth Opening: Normal (> 3cm) Thyromental Distance: Less than 3 cm Facial Hair: Full [place] Range of Motion: Full ROM Neck Circumference: Normal Teeth Condition: Normal Dentition ASA Classification ASA Score: ASA 3 Emergency Case?: No NPO Status NPO Status: NPO Clears >2 hours, Solids >8 hours Anesthesia Plan Resuscitation Status: Full Code Anesthesia Technique: Spinal Anesthesia Airway Planned: Natural Airway Pain Management: Surgeon and patient request nerve block Monitors Used: Standard Monitors
[2023-09-21] MEDS: ceFAZolin 3,000 MG in Normal Saline 100 ML 200 MG IVPB (09:04)
[2023-09-21] MEDS: TRANEXAMIC ACID/SOD. CHL. 1,000 MG/100 ML BAG 600 MG IVPB (09:11)
--- NOTE | 2023-09-21 09:32 | W.ANESNERVE ---
Nerve Block Single Injection Procedure Date and Time Date Performed: 09/21/23 Procedure Start: 08:32 Location Where Procedure Performed Procedure Location: Day Surgery Unit Reason Performed: Postoperative Analgesia Requesting Provider: Rick Das Timeout Performed Timeout Performed: Yes Monitoring Used ECG, Blood Pressure, SpO2 and See EMR for corresponding vital signs Sterility Sterility: Hand Hygiene, Surgical Cap, Surgical Mask, Sterile Gloves and Chlorhexidine Sedation Given During Procedure Sedation Given (Indicate Dose Given): No Sedation given Patient Mental Status Patient Mental Status: Awake Nerve Block 1st Nerve Block: Laterality: Right Block Type: Adductor Canal Ultrasound Image Saved?: Yes Needle / Catheter Used: 100mm SonoPlex II Local Anesthetic Bolus (Indicate Dose Given): Lidocaine used for local infiltration of skin, Injected in 3-5ml increments after negative blood aspiration, Bupivacaine 0.25% Dose:: 10ml and Exparel Dose:: 10ml Additives (Indicate Dose Given): None Ultrasound: Sterile probe cover and gel used Nerve Stimulator: Not Used Paresthesia: None Procedure Tolerated: No Complications and Patient tolerated well Procedure Outcome: Successful Performed By: Flynn Niño
--- NOTE | 2023-09-21 09:55 | W.PM.DS.N ---
Date of service: 09/21/23 Time of Service: 10:02 DS: Diagnosis Discharge Diagnosis (1) Primary osteoarthritis of right knee: Status: Chronic Discharge Plan Disposition Patient Disposition: Home Condition: Good Discharge Details Reason For Visit: Right knee DJD Attending Provider: Rick Das Primary Care Provider: Anahi Chamberlain Home Meds and New Rx's Prescriptions: New acetaminophen 500 mg tablet 1,000 mg PO Q8H PRN Qty: 90 0RF Rx Instructions: Take two tablets up to every 8 hours as needed for pain celecoxib [Celebrex] 200 mg capsule 200 mg PO BID PRNQty: 60 0RF Rx Instructions: Take one tablet twice daily for pain and inflammation dexamethasone 4 mg tablet 4 mg PO DAILY Qty: 2 0RF Rx Instructions: Take one tablet once daily for two days docusate sodium [Colace] 100 mg capsule 100 mg PO BID Qty: 30 0RF gabapentin 300 mg capsule 300 mg PO QHS Qty: 14 0RF Rx Instructions: Take one tablet at bedtime pantoprazole 40 mg tablet,delayed release (DR/EC) 40 mg PO DAILY Qty: 14 0RF oxycodone 5 mg tablet 5 mg PO Q4H PRNQty: 18 0RF Rx Instructions: Take one tablet up to every 4 hours as needed for severe postoperative pain Continued high toilet seat Miscellaneous DAILY Qty: 1 0RF warfarin [Coumadin] 6 MG tablet 1 tab PO DAILY Patient Comments: 02.27.15 patient states he alternates between 6mg & 7mg daily.HE 3.16 pt states 8mg, 8mg, 7 mg, 7mg last 4 days, pt/inr drawn today, will get call tonight.HE atorvastatin 20 mg tablet 20 mg PO QPM Discontinued acetaminophen [Tylenol] 325 MG tablet 650 mg PO Q4H PRN PRNQty: 200 0RF Discharge Instructions Additional Instructions: Total Knee Discharge Instructions Activity: The most important activity is to walk and to work on gentle motion (both flexion and extension). You should try to take short walks a few times a day. It is important that when resting you work on keeping the knee straight. Avoid putting a pillow behind the knee as this will encourage flexion. Work on range of motion exercises as provided by Physical Therapy. - Start outpatient physical therapy within 2 weeks. - You should wear the ROYA hose on both legs for 2 weeks. You may remove these at night. You may also use any compression sock in place of the ROYA hose. - Utilize [employer] to review exercises, see videos on exercises and obtain basic information pertaining to your surgery and your recovery. Dressing: Remove the Aleksandr wrap by 2 days after your surgery and put on the ROYA stocking given to you from the hospital. Keep the surgical dressing (underneath the ALEKSANDR wrap) in place for at least one week. After the first week it may be removed and replaced with light gauze and tape or nothing. The wound and dressing may get wet after 3 days but avoid soaking the dressing or otherwise it will need to be changed. Many people prefer covering the dressing with cling wrap (saran wrap) to minimize it from getting soaked. If it gets wet, just pat dry. If it starts to peel off then it will need to be changed. Medications: - You should take Tylenol and anti-inflammatory Celebrex as your primary pain control medications. If the Celebrex is too expensive or not covered, please call the office for another alternative (Advil/Ibuprofen or Naproxen/Aleve) - You have been prescribed a stronger pain medication Oxycodone for breakthrough pain, take as needed as prescribed. - You have also been prescribed a stomach acid reduction agent Pantoprozole to help reduce stomach acid and reflux. - You have been prescribed Gabapentin to take at night for restlessness and nerve pain. - You will resume your normal dose of warfarin on 09/22/23 for DVT prevention unless instructed otherwise. - You have also been prescribed Decadron to take to control post-operative nausea and pain. You will start this tomorrow. - If you have constipation you should take Colace (which has been prescribed) or Miralax (which is available [id number]). It takes most people 3-4 days to have a bowel movement. Follow-up: 2 weeks If you have any acute concerns or questions, please do not hesitate to contact the office at [phone]. You may contact Dr. Das with any questions after hours through the hospital at [phone] or on his cell phone at [phone]. Referrals: Rick Das MD [ [facility] STAFF PHYSICIAN] - Equipment/Supplies: Walker Activity:: Activity as Tolerated Remove Dressings/Wound Care:: Do Not Remove Shower/Bathe:: Cover Diet:: As Tolerated Discharge Orders Discharge Orders: Discharge Order (Routine); Ordered 09/21/23 Ordered By: Anahi Lackey DS: Summary Time Spent with Patient providing and/or coordinating discharge services: Less than 30 minutes Status at Discharge Functional status at discharge: uses cane/walker Overall status at discharge: patient is progressing back to baseline Mental Status: mental status grossly normal Speech and Movement: speech and movement normal Mood: congruent mood Affect: normal affect Quality:SDOH Health Related Social Needs: No Data to Display Exam Psych Mental Status: mental status grossly normal Speech and Movement: speech and movement normal Mood: congruent mood Affect: normal affect DS: Data Vitals/I&O Vitals and I&O: Vital Signs Temperature 97.7 F 09/21/23 08:34 Temperature Source Temporal Artery Scan 09/21/23 08:34 Pulse 58 L 09/21/23 08:34 Pulse Rhythm Regular 09/21/23 07:53 Respiratory Rate 16 09/21/23 08:34 Respiratory Depth Normal 09/21/23 07:53 Blood Pressure 150/83 H 09/21/23 08:34 Blood Pressure Mean 105 09/21/23 08:34 Blood Pressure Position Supine 09/21/23 08:34 Pulse Oximetry 95 09/21/23 08:34 Oxygen Delivery Method Room Air 09/21/23 08:34 Oxygen Flow Rate 0 09/21/23 08:34 Pain Level 0 09/21/23 08:34 Comment 0840 Block complete. Patient tolerated well. 09/21/23 08:34 Intake & Output 09/20/23 09/20/23 09/21/23 11:59 23:59 11:59 Intake Total 200 / 200 Balance 200 / 200 Weight 255 lb 11.779 oz Intake: IV 200 / 200 PFSH All Active Problems Primary osteoarthritis of left knee (Chronic) DEPO MEDROL 06/21/23 Primary osteoarthritis of right knee (Chronic) Cubital tunnel syndrome on right (Chronic) Lateral epicondylitis of right elbow (Acute) Medical History DVT of leg (deep venous thrombosis) Pulmonary embolism Surgical History Carolanc's sprain with surgical repair S/P ACL repair x2 right History of colonoscopy Social History Smoking/Tobacco Use Status: Never Smoking risk assessment performed?: Yes Alcohol Intake: current Alcohol Intake frequency: a few times a month Alcohol type: beer Drug use: Never Housing: house Do you feel safe at home: Yes Do you feel safe in your relationship?: Yes Time Spent with Patient Time Spent with Patient: <45 minutes Time was spent: preparing to see the patient(eg.review tests) and counseling the patient
--- NOTE | 2023-09-21 10:40 | W.PM.OP ---
Date of service: 09/21/23 Time of Service: 09:15 Operative Note Operative Note DATE OF PROCEDURE: 09/21/23 PRE-OP DIAGNOSIS: Right Knee Post-Traumatic Osteoarthritis POST-OP DIAGNOSIS: same PROCEDURE: Right Total Knee Replacement SURGEON: Rick Das [employer] PRODUCER: Anahi Lackey ANESTHESIA TYPE: General LMA/ETT Refer to Anesthesia Record ESTIMATED BLOOD LOSS: 50 PATHOLOGY: none sent TOURNIQUET TIME: 0 COMPLICATIONS: None Patient was transported to: PACU Patient's condition: stable Implants: 1. Depuy Attune Cementless Cruciate Retaining Femoral Component, Size 10 2. Depuy Attune Cementless Fixed Bearing Tibial Component, Size 9 3. Depuy Attune 10x6 CR/FB Poly 4. Depuy Attune Patellar Component, Size 41 Indications: I have seen Pernell in clinic for symptoms of knee arthritis, confirmed with radiographic findings. He has exhausted nonoperative methods and was having significant limitations in daily function and desired better function and less pain. I discussed the technical details of a knee replacement. I explained the risks of the procedure to include, but not limited to, bleeding, infection, pain, stiffness, fracture, damage to nerves and vessels, damage to muscles and tendons, loosening, need for repeat procedure, blood clot and cardiopulmonary demise. Despite these risks, Pernell elected to proceed. Findings: There was significant signs of arthritis throughout the knee involving all 3 compartments. Procedure Description: Pernell was greeted in the preoperative holding area where the correct side was identified and marked. The consent was reviewed with the patient and signed. The history and physical was updated. All questions were answered. Preoperative medications were administered: Acetaminophen 1000mg, Celebrex 400mg, and Gabapentin 300mg. An adductor canal block was then administered by the anesthesia team in the DSU. He was taken back to the operating room. A spinal anesthestic was then attempted but unsuccessful and thus converted to a general anesthetic. The patient was placed into the supine position on the operating room table. A nonsterile tourniquet was placed high onto the leg but only used for cementing. Posts were placed for positioning during the procedure. All bony prominences were well padded. Prophylactic antibiotics in the form of Cefazolin were administered. 1g of Tranxemic Acid was given intravenously within 30 minutes of incision. The right leg was then prepped with Chloraprep and draped in a standard fashion with impervious stockinette. A second prep with Chloraprep was performed prior to application of Iodine impregnated skin protection. A timeout to confirm correct identity, side and site, procedure, allergies, anesthesia, and medical concerns was performed. With the knee in some flexion, a midline incision was made overlying the knee. Full thickness skin flaps were raised once the extensor mechanism was encountered. These were raised medially and laterally. Any bleeding was controlled with electrocautery. Once the extensor mechanism was fully exposed, a medial parapatellar arthrotomy was performed in a flexed position. All bleeding from the arthrotomy and the geniculate arteries was coagulated. A medial subperiosteal peel was performed with electrocautery to the midcoronal plane. The fat pad was removed while keeping the patellar tendon protected. The anterior distal femur synovium was removed for later visualization. The ACL and PCL were resected and the anterior horn of the lateral meniscus was transected. The knee was then flexed with the patella everted. Large osteophytes from the tibia were removed. Large osteophytes from the femur were removed. There was significant chondromalacia throughout the entirety of the knee with exposed bone in all 3 compartments. Previous ACL graft was intact. Using a step drill, and based on preoperative templating, the femoral canal was entered. This was done with a step drill without any difficulty. The intramedullary distal femoral cut guide was inserted, set to a 4 degree valgus cut and 9mm cut thickness. The distal femoral cut guide was then held in position and pinned. With the soft tissues protected, the distal cut was performed. This was passed over a few times to ensure a planar cut. I then turned attention to the tibia. The extramedullary guide was placed onto the leg. The distal aspect was slid medial to adjust for position of center of ankle and stay in line with shaft of the tibia. Approximately 3-5 degrees of posterior slope was kept in the proximal cutting guide. The center of the guide was aligned with the PCL. The stylus was used to assess cut thickness. The medial side, most involved side, was set for a 4mm cut. This was then held in position and pinned into place with 2 additional pins and a cross pin for stability. The medial and lateral collateral ligaments were protected and the cut was performed. With this completed, it was assessed and noted to be of appropriate dimensions. The guide was removed. A spacer block was inserted and the knee was brought into extension. The 6mm spacer block provided full extension, without hyperextension and with stability of both the medial and lateral collateral ligaments was assessed. The pins from the femur and the tibia were then removed. The distal femur was then sized. The anterior stylus was placed onto the lateral ridge of the anterior femur. This indicated a size 10 femur. The external rotation of the guide was adjusted to 3 degrees to match the epicondylar axis, perpendicular to Wilkes?s line. The 4-in-1 cutting guide was the placed. The posterior medial femur cut was evaluated and appeared of good thickness. The spacer block was inserted underneath the cutting guide and stability was confirmed in 90 degrees of flexion. An barbara wing was used to confirm appropriate position of the anterior cut to avoid notching. This cutting guide was ensured to be flush on the cut surface and then pinned into place with headed pins. While protecting the soft tissues, quad tendon, and collateral ligaments, the anterior and posterior cuts were performed with a saw. The central two pins were removed and the posterior and anterior chamfers were cut next. The notch-cutting guide was placed. This was pinned to lateralize the femoral component as much as possible while keeping it flush on the cut surface. This was then pinned into position. A reciprocating saw was used to make the notch cut. A rasp smoothed the cut surfaces. The medial and lateral menisci were removed. A trial femoral component was then inserted, impacted down to the cut surfaces, and the lug holes were drilled. A provisional trial tibial component was placed and the knee was brought through range of motion. There was noted to be excellent extension and flexion. There was no significant instability. The patella was tracking without thumbs. A size 6mm polyethylene component provided the best range of motion and stability with less than 2mm gapping with medial and lateral stress and full extension without significant hyperextension. The tibial cut surface was fully exposed. The tibia was then sized as a 9. The tibia had been previously marked during trialing to correspond to the center of the tibial component to help with rotation. The trial was aligned to this lesly, approximately rotated to the medial 1/3rd of the tibial tubercle. The trial was pinned into place. The tibia was prepared with a reamer and a keel punch and lug holes. The knee was then brought into extension and the patella was measured as 32mm. Using the patellar clamp and cut guide, this was resected to a flat surface with at least 13mm of thickness remaining. The size 41 patella fit the best. This was oriented and then clamped into position. The lugs were drilled. The trial components were removed. The final components were opened on the back table. The periosteal and capsular tissues, especially posteriorly, around the knee were then systematically injected with a periarticular cocktail consisting of 246mg of Ropivacaine, 0.5mg of Epinephrine, 0.08mg of Clonidine, and 30mg of Ketorolac, diluted to 100cc. On the back table, with the implants opened, the cement was mixed. One batch of high viscosity cement was prepared with vacuum assistance. After the cement was ready a small amount was placed on the cut surface of the patella and the patellar button was clamped into position and held. While the cement was hardening, the cementless knee components were placed. Starting with the tibial component, the tibia was subluxed anteriorly and the lug holes of the component were lined up. The tibia was then impacted with an impactor and mallet until the tibial component was in contact with the tibia. The final polyethylene component was inserted. Then, the femoral component was inserted. The lug holes were aligned and the component was impacted into position. The knee was irrigated with Surgiphor Betadine solution. This was allowed to sit in the knee for 3 minutes and then it was irrigated out with saline. After the cement had finally cured, approximately 15min, the clamp was removed from the patella and the knee was taken through range of motion. The patella was tracking with a no-thumbs technique. The capsule was then reapproximated with a No. 1 Vicryl at multiple locations. The capsule was finally closed with a No. 2 Stratafix, barbed suture. The second dosing of 1g TXA was started. Deep tissues were then reapproximated with 0 Vicryl and 2-0 Vicryl. The skin was closed with a running 3-0 Monocryl in a subcuticular fashion. This was reinforced with skin glue. A Mepilex silver dressing was applied along with a [id number] ASHUTOSH wrap. A CryoCuff was applied. Pernell was transferred to the hospital bed without difficulty an suffering no apparent complication. Pernell has a good prognosis. Physical therapy will start today and without restrictions, weight-bearing as tolerated. His usual home dose of Coumadin will be used for DVT prophylaxis.
[2023-09-21] MEDS: HYDROmorphone 2 MG/ML SYR IVP (11:11)
--- NOTE | 2023-09-21 13:58 | W.ANESPOSTOP ---
Postoperative Evaluation Date, Time and Location Date Performed: 09/21/23 Time Performed: 13:58 Patient Location: Day Surgery Unit Vital Signs Most Recent Imported Vital Signs: Most Recent Vital Signs Temp Pulse Resp BP Pulse Ox 36.2 C L 54 L 16 148/96 H 96 09/21/23 12:13 09/21/23 12:13 09/21/23 12:13 09/21/23 12:13 09/21/23 12:13 Pain Score Most Recent Pain Score: Most Recent Pain Score Pain Level 1 09/21/23 12:13 Assessment Mental Status: Awake (Alert & Oriented to Patient Baseline) Airway and Respiratory Function: Patent airway with normal (patient baseline) respiratory exam Cardiovascular Function: Hemodynamically Stable Hydration Status: Adequately Hydrated Nausea & Vomiting: No Nausea or Vomiting Pain: Pain is tolerable per patient Peripheral Nerve Block: Regional nerve block not resolved at time of post operative discharge
--- NOTE | 2023-09-21 14:06 | IN_ITS ---
PT Notes Visit Reasons: Right knee DJD Physical Therapy Inpatient Initial Evaluation Date: 09/21/2023 Referring Doctor: DAMASO Medina PT Orders: PT CONSULT: S/P Ortho surgery Precautions: WBAT on the right LE with AD. Patient Profile/Admitting Diagnosis: Juve is a 63-year-old male with degenerative joint disease of the right knee and status post right total knee arthroplasty on postoperative day 0. PMHX: All Active Problems (Updated 06/21/23 @ 14:25 by Rolly Vicente RN) Primary osteoarthritis of left knee (Chronic) DEPO MEDROL 06/21/23Primary osteoarthritis of right knee (Chronic) Cubital tunnel syndrome on right (Chronic) Lateral epicondylitis of right elbow (Acute) Medical History (Updated 06/21/23 @ 14:25 by Rolly Vicente RN) DVT of leg (deep venous thrombosis) Pulmonary embolism Social History/Home Situation: Lives with in a private home with 2-3 steps to enter with a rail on one side and a wall on the other side. 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 Independent with all aspects of ADLs prior to surgery although patient has had worsening difficulty with mobility performance due to arthritic progression. Equipment Owned/DME: [employer], refitted by PT for client prior to today's use Subjective: Reported minimal pain in the right knee at rest and with movement. Denied headache, chest pain, and lightheadedness throughout session. Objective: General Observation: Resting in bed. present in room throughout session. ASHUTOSH wrap to right LE. TEDS to left leg. Cryocuff to right knee. Mental Status: Alert and oriented as to person, place, time, and purpose. Able to pay attention, focus, and respond appropriately. Pain: 1/10 in the R knee Vital Signs: Closely monitored by nursing staff ROM: Right Lower Extremity: Hip flexion WFL. Hip abduction WFL. Knee flexion 20 degrees to 110 degrees. Knee extension -20 degrees. Ankle dorsiflexion WFL. Ankle plantarflexion WFL. Left Lower Extremity: Hip flexion WFL. Hip abduction WFL. Knee flexion WFL. Ankle dorsiflexion WFL. Ankle plantarflexion WFL. Strength: Right Lower Extremity: Hip flexors 4/5. Hip abductors 4/5. Knee flexors 3-/5. Knee extensors 3-/5. Ankle dorsiflexors 5/5. Ankle plantarflexors 5/5. Left Lower Extremity: Hip flexors 5/5. Hip abductors 5/5. Knee flexors 4/5. Knee extensors 4/5. Ankle dorsiflexors 5/5. Ankle plantarflexors 5/5. Bed Mobility/Transfers: Minimal cueing provided for use of B hands as needed for support, movement sequence, AD management, and posture to reduce fall risk and minimize pain report Supine to sit stand by assist Sit to supine stand by assist Sit to stand stand by assist with FWW Stand to sit stand by assist with FWW Bed to reclining chair stand by assist with FWW Reclining chair to bed stand by assist with FWW Gait: Facilitated safe and correct performance of level surface ambulation covering a distance of 150 feet using front-wheeled walker with minimal verbal cueing provided for step through heel-toe reciprocal gait pattern with emphasis on ma ximizing knee extension the right at right mid stance, standby assist only. Denied headache, chest pain, and lightheadedness throughout session. Stairs: Guided patient with safe and correct performed negotiation of 6 x 4 inch steps and 4 x 6 inch steps while holding onto bilateral rails during the first trip and using a single-point cane with the other hand while holding onto 1 rail during the second attempt with minimal verbal cueing provided for correct sequence, increased to right knee flexion during each ascent of the right LE, and posture to reduce fall risk and minimize pain report. Static Sitting: Normal Dynamic Sitting: Normal Static Standing: Fair Dynamic Standing: Fair Special Tests: Mobility Limitations Standardized Measure [facility] AM-PAC 6 clicks Basic Mobility Inpatient Short Form: Raw Score: 24 CMS Score: 0% deficit Informed Consent/Education: Patient was instructed in purpose of PT consult and plan of care. Agreeable to proceed with established PT POC to achieve personal goals. Trained patient with correct performance of exercises below to maximize motor control, joint flexibility, soft tissue extensibility of the R knee musculature: Access Code: [email or web address] URL: [email or web address] Private Location App/ Date: 09/20/2022 Prepared by: Denisse Oliver Exercises - Supine Quad Set - 1 x daily - 7 x weekly - 1 sets - 10 reps - 5 hold - Supine Heel Slide - 1 x daily - 7 x weekly - 1 sets - 10 reps - 5 hold - Supine Ankle Pumps - 1 x daily - 7 x weekly - 1 sets - 10 reps - 5 hold - Small Range Straight Leg Raise - 1 x daily - 7 x weekly - 1 sets - 10 reps - 5 hold - Seated March - 1 x daily - 7 x weekly - 1 sets - 10 reps - 5 hold Assessment: Patient requires the use of a front wheeled walker for all mobility ADL performance maximize independence and reduce fall risk at home. Patient presents with clinical signs and symptoms consistent with current/admitting diagnoses that have resulted to mobility limitations, gait instability, generalized weakness, and overall ADL decline as demonstrated by the following impairment level findings: 1. Decreased strength to R knee major muscle groups 2. Impaired standing balance 3. Impaired activity tolerance 4. Limitation of joint range of motion in R knee Impairments are contributing to the following functional limitations: 1. Difficulty with ambulation without assistive device and physical assistance 2. Increased completion time for mobility ADL performance 3. Increased risk for falls Patient is assessed as a 06063 moderate complexity based on the following: History: 63-year-old male with past medical history as indicated above Examination: Demonstrable impairment in strength, balance, and mobility level with underlying impairments and functional limitations as exhibited above Presentation: Evolving Decision Makin moderate complexity Goals: N/A. PT evaluation and 1 treatment session only for functional mobility training and HEP instruction. Plan of Care/Treatment Plan: N/A. PT evaluation and 1 treatment session only for functional mobility training and HEP instruction. DISCHARGE RECOMMENDATIONS: Home when medically cleared by orthopedic surgeon. Recommend outpatient PT services in order to optimize functional mobility outcomes and facilitate return to independent community ambulation without an assistive device. TREATMENT CODE/TIME: 43244 x 20 minutes for 1 unit, 88617 x 30 minutes for 1 unit (12:58-13:48). Thank you for the opportunity to participate in the care of this patient. Denisse Oliver PT, DPT, CLT [facility] [place], [place]
== END 2023-09-21 14:26 | disposition home or self-care (01) ==
PROVIDERS: PCP Family Medicine; Visit Provider Student in an Organized Health Care Education/Training Program
PROC: (CPT 27447; principal; 2023-09-21 09:15)
DX: Z86.718 Personal history of other venous thrombosis and embolism; Z86.711 Personal history of pulmonary embolism; M17.31 Unilateral post-traumatic osteoarthritis, right knee
CPT/HCPCS: 27447; 76942; 97162; 97530; C1776; C9290; J0665; J0690; J1100; J1170; J2250; J2401; J2405; J2704

== ENCOUNTER 2023-10-04 14:45 | Outpatient (CLI) | payer BC, SELFPAY ==
--- NOTE | 2023-10-04 11:00 | DI.RAD_ITS ---
Exam(s) XR KNEE RT 1V XR STANDING ALIGNMENT EXAM: XR STANDING ALIGNMENT CLINICAL HISTORY: 1ST POST OP S/P R TKA. TECHNIQUE: 2D digital imaging was performed. Standing AP views were performed from the pelvis throu gh the ankles. COMPARISON: CR XR STANDING ALIGNMENT from 06/21/2023 CR XR KNEE RT 1V from 10/04/2023 FINDINGS: BONES: No acute fracture is present. No bony destructive lesion is seen. Leg length discrepancy: The left femoral head projects a few millimeters superior to the right. JOINTS: Knees: A right knee prosthesis has been placed when compared to the prior exam. There are no abnormal surrounding lucencies. The left knee joint spaces are maintained. The ankle joints are unremarkable. The hip joints are unremarkable. SOFT TISSUE: Normal. IMPRESSION: status post placement of right knee prosthesis. Minimal overall leg length discrepancy. DATA REPOSITORY: RADIATION DOSE DELIVERED:
== END 2023-10-04 14:46 | disposition home or self-care (01) ==
LOC: DIORS 14:45
PROVIDERS: PCP Family Medicine; Visit Provider Physician Assistant
DX: Z96.651 Presence of right artificial knee joint (principal); Z47.1 Aftercare following joint replacement surgery
CPT/HCPCS: 73560; 77073

== ENCOUNTER 2024-05-11 04:08 | Outpatient (CLI) | payer BC, SELFPAY ==
[2024-05-11 15:39] LABS: INR 2.8 (0.9-1.1); Prothrombin Time 26.5 sec (9.1-11.1)
== END 2024-05-11 04:09 | disposition home or self-care (01) ==
PROVIDERS: PCP Family Medicine
DX: I82.409 Acute embolism and thrombosis of unspecified deep veins of unspecified lower extremity (principal)
CPT/HCPCS: 36415; 85610

== ENCOUNTER 2024-06-21 03:47 | Outpatient (CLI) | payer BC, SELFPAY ==
[2024-06-21 15:55] LABS: INR 2.8 (0.9-1.1)
== END 2024-06-21 03:48 | disposition home or self-care (01) ==
LOC: LBO 03:47
PROVIDERS: PCP Family Medicine
DX: I82.409 Acute embolism and thrombosis of unspecified deep veins of unspecified lower extremity (principal)
CPT/HCPCS: 36415; 85610

== ENCOUNTER 2024-08-17 03:39 | Outpatient (CLI) | payer MEDICARE, SELFPAY ==
[2024-08-17 15:47] LABS: INR 2.7 (0.9-1.1); Prothrombin Time 25.3 sec (9.1-11.1)
== END 2024-08-17 03:40 | disposition home or self-care (01) ==
PROVIDERS: PCP Family Medicine
DX: I82.409 Acute embolism and thrombosis of unspecified deep veins of unspecified lower extremity (principal)
CPT/HCPCS: 36415; 85610

== ENCOUNTER 2024-09-21 03:32 | Outpatient (CLI) | payer MEDICARE, SELFPAY ==
[2024-09-21 13:52] LABS: INR 3.2 (0.9-1.1); Prothrombin Time 29.7 sec (9.1-11.1)
== END 2024-09-21 03:33 | disposition home or self-care (01) ==
LOC: LBO 03:32
PROVIDERS: PCP Family Medicine; Visit Provider Family Medicine
DX: I82.409 Acute embolism and thrombosis of unspecified deep veins of unspecified lower extremity (principal)
CPT/HCPCS: 36415; 85610

== ENCOUNTER 2024-09-21 15:22 | Outpatient (CLI) | payer MEDICARE, SELFPAY ==
--- NOTE | 2024-09-21 15:15 | DI.RAD_ITS ---
Exam(s) XR KNEE RT 2V AP,LAT EXAM: XR KNEE RT 2V AP,LAT CLINICAL HISTORY: ANNUAL F/U R TKA. TECHNIQUE: 2D digital imaging was performed. COMPARISON: CR XR KNEE RT 1V from 10/04/2023 FINDINGS: 2 Views-AP and lateral Position alignment of the components of the prosthesis remain stable with no fracture or loosening. Again noted is evidence of proceeding ACL surgery. IMPRESSION: Stable satisfactory appearance DATA REPOSITORY: RADIATION DOSE DELIVERED:
== END 2024-09-21 15:23 | disposition home or self-care (01) ==
LOC: DIORS 15:23
PROVIDERS: Visit Provider Student in an Organized Health Care Education/Training Program
DX: Z96.651 Presence of right artificial knee joint (principal); Z47.1 Aftercare following joint replacement surgery
CPT/HCPCS: 99213; 73560

== ENCOUNTER 2024-10-06 07:35 | Day surgery (SDC) | payer MEDICARE, SELFPAY ==
--- NOTE | 2024-10-05 19:45 | W.PM.DSUDISC ---
Date of service: 10/06/24 Discharge Plan Disposition Patient Disposition: Home Condition: Good Discharge Details Reason For Visit: screening colonoscopy Attending Provider: Enrrique Vicente Primary Care Provider: Renea Fabian Home Meds and New Rx's Prescriptions: Continued high toilet seat Miscellaneous DAILY Qty: 1 0RF warfarin 5 mg tablet 5 mg PO DAILY warfarin 1 mg tablet 1 mg PO DAILY atorvastatin 20 mg tablet 20 mg PO QPM Discontinued bisacodyl [Dulcolax (bisacodyl)] 5 mg tablet,delayed release (DR/EC) 5 mg PO ONCE Qty: 4 0RF Rx Instructions: Take per colonoscopy instructions provided by ordering providers office polyethylene glycol 3350 17 gram/dose powder 17 g PO ONCE Qty: 238 0RF Rx Instructions: Take per colonoscopy instructions provided by ordering providers office Discharge Instructions Instructions: Colon polyps, Diverticulosis Additional Instructions: Juve, I hope you feel well after the procedure today. Things went very smoothly. Your prep was excellent, and I could see everything quite nicely. I did find, and removed a total of 6 polyps today. These will all be sent to the pathologist for their review. Once I know the nature of each of these polyps, my office will be in touch with recommendations for future colonoscopies. Incidentally, you also have some diverticulosis. Diverticula are weak spots in the muscular wall of the colon. This causes the inside lining to pocket approach outwards. These pockets are called diverticula, and the condition of having them is known as diverticulosis. Many of my patients have this, and are never at all bothered by it. Sometimes patients experience flares of pain, usually on the left lower portion of their abdomen related to inflammation from these diverticula. We call that diverticulitis. I will attach some information here about polyps as well as diverticulosis. If you need anything, or have any questions at all, please do not hesitate to call. 1. If tolerated, consume a soft, low fiber diet for 1-2 days. [address] Do not drive, drink alcohol, operate machinery, make critical decisions, or do activities that require coordination or balance for 24 hours. 3. Because air was put into your colon during the procedure, expelling air from your rectum (passing gas or farting) is normal. 4. You may not have a bowel movement for 1-3 days because of the colonoscopy prep. This is normal. 5. Go directly to the emergency room if you notice any of the following: Develop chills (warm to touch), or if you have a thermometer and your temperature is above 101 Difficulty breathing or difficultly swallowing Persistent vomiting Severe abdominal pain, other than gas cramps Severe chest pain Black, tarry stools Any bleeding ? exceeding one tablespoon 6. Call your physician if the site where your intravenous was started becomes red, swollen, painful, and warm to touch. 7. Your physician has reviewed your pre-procedure medications. Please continue to take those medications as previously ordered. You will be given specific information/education regarding any changes to your medications before leaving. Activity:: Activity as Tolerated Diet:: As Tolerated Discharge Orders Discharge Orders: Discharge Order (Routine); Ordered 10/05/24 Ordered By: Enrrique Vicente DS: Diagnosis Discharge Diagnosis (1) Encounter for screening colonoscopy: Status: Acute Asessment and Plan: Follow-up on polypectomy results
--- NOTE | 2024-10-05 19:47 | W.COLOREPORT ---
Date of service: 10/06/24 Time of Service: 09:16 Colonoscopy Report Date of procedure: 10/06/24 Pre-op diagnosis general: screening colonoscopy Post-op diagnosis procedure note: other (Colon polyps, diverticulosis) Procedure: colonoscopy with polypectomy Surgeon: Enrrique Vicente Anesthesia Type: General:No Airway Estimated blood loss (mL): 10 Pathology: other (Polyps at 85, 80, 70, 60, 45, 25 cm) Complications: None Disposition: same day Indications: Juve is a 64 year old man who needs a screening colonoscopy Prep: Miralax/Dulcolax Procedure Start Time: 08:37 Procedure End Time: 09:01 Retraction Time: 9 Findings: Sigmoid diverticulosis; polyps at 85, 80, 70, 60, 45, 25 cm Procedure Description: After the induction of anesthesia, and with the patient in left lateral decubitus position, I began by performing an external anorectal exam.? Perineum and skin were normal, as was the anal verge.? There was no evidence of external hemorrhoids.? Next, I performed a digital rectal exam.? I did not appreciate any abnormal findings.? Next, I advanced a colonoscope into the rectal vault.? I performed retroflexion.? This appeared normal.? Using irrigation, I then advanced the colonoscope beyond the rectal folds and into the sigmoid colon before advancing towards the cecum.? The quality of the prep was excellent.? There is sigmoid diverticulosis. A 0.75 cm pedunculated polyp was observed in the distal transverse colon while advancing towards the cecum. The scope was noted to be in the cecum by identification of the ileocecal valve and appendiceal orifice.? I then began withdrawing the colonoscope using repeated irrigation as necessary for full evaluation of the colonic mucosa. ?A 0.25 cm flat polyp was found around 85 cm beyond the anal verge. This was removed with cold forceps. Similarly, small flat polyps were found at 80, and 70 cm beyond the anal verge. These were also removed with cold forceps without any significant bleeding. Again, in the distal transverse colon, measuring approximately 60 cm past the anus is a large pedunculated polyp this was removed with a energize snare polypectomy. There was no bleeding from the site. Resection. Complete I estimate this to be about 0.75 cm in size. 2 more polyps were found. 1 was at 45 cm, the other was at 25 cm past the anus. These were also both small, flat, and removed with cold forceps. Once the scope was withdrawn to the level of the rectum, great care was taken to examine portions of the rectal folds.? Finally, the scope was withdrawn and the patient was brought to the same-day surgery recovery unit as the anesthetic wore off. ?The findings and instructions were shared with the patient prior to discharge. [place] Bowel Prep [place] Bowel Prep Right Colon: 3 Left Colon: 3 Transverse Colon: 3 Total Score: 9
[2024-10-06 07:39] VITALS: BP 153/93; PULSE 61; RESP 18; TEMP 36.2; O2SAT 94
[2024-10-06] MEDS: Lactated Ringers 1,000 ML 80 ML IV (08:03)
[2024-10-06 08:13] VITALS: BMI 32.0
--- NOTE | 2024-10-06 08:13 | W.ANESPRE ---
General Info Date of Service Date Performed: 10/06/24 Height: 6 ft 4 in Weight: 119.4 kg Body Mass Index (BMI): 32.0 Surgical Procedure: Operation Date: 10/06/24 09:05 Proposed Procedure Side Surgeon p Colonoscopy Enrrique Vicente MD Meds Allergies and Home Medications Allergies Allergy/AdvReac Type Severity Reaction Status Date / Time No Known Allergies Allergy Verified 10/06/24 07:56 Home Medication ?Medication ?Instructions ?Recorded atorvastatin 20 mg tablet 20 mg PO QPM 09/20/23 warfarin 1 mg tablet 1 mg PO DAILY 08/15/24 warfarin 5 mg tablet 5 mg PO DAILY 08/15/24 Current Visit Medications: Current Medications Generic Name Dose Route Start Last Admin Trade Name Freq PRN Reason Stop Dose Admin Ringer's Solution 1,000 mls @ 80 mls/hr 10/06/24 06:00 10/06/24 08:03 IV 10/06/24 23:59 80 mls/hr INFUSION SHEREE Administration IV Miscellaneous Supplies 1 each 10/06/24 06:00 Iv Access IV 10/06/24 23:59 DIRECTED SHEREE Sodium Chloride 0 ml 10/06/24 06:00 Normal Saline Flush 10 Ml Syr IV 10/06/24 23:59 PRN PRN Sodium Chloride 0 ml 10/06/24 06:00 Normal Saline 10 Ml Vial IJ 10/06/24 23:59 DIRECTED PRN Sterile Water 0 ml 10/06/24 06:00 Water,Injection,Sterile 10 Ml Vial IJ 10/06/24 23:59 DIRECTED PRN PFSH Active Problems Active Problems: Problem Status Onset Code Encounter for screening colonoscopy Acute Z12.11 Hyperlipidemia Acute E78.5 History of total right knee replacement Acute 09/21/23 Z96.651 Primary osteoarthritis of left knee Chronic M17.12 Cubital tunnel syndrome on right Chronic G56.21 Lateral epicondylitis of right elbow Acute M77.11 Medical History Medical History Herpes zoster Basal cell carcinoma of skin DVT of leg (deep venous thrombosis) Pulmonary embolism Surgical History Surgical History Lisfranc's sprain with surgical repair S/P ACL repair x2 right History of colonoscopy (~06/2012) Tobacco Smoking/Tobacco Use Status: Never Passive smoking exposure: No Alcohol Alcohol Intake: current Alcohol intake frequency: a few times a month Alcohol type: beer Substance Use Substance use: Never Substance use type: does not use Vital Signs and Lab Results Vital Signs Most Recent Vital Signs in EMR: Most Recent Vital Signs Temp Pulse Resp BP Pulse Ox 36.2 C L 61 18 153/93 H 94 10/06/24 07:39 10/06/24 07:39 10/06/24 07:39 10/06/24 07:39 10/06/24 07:39 Lab Results Coagulation Panel: INR, (0.9-1.1) 3.2 H 09/21/24, 13:35 PT, (9.1-11.1) 29.7 sec H 09/21/24, 13:35 Anesthesia Assessment and Plan Anesthesia History Personal History: No History of Anesthesia Complications Family History: No Family History of Anesthesia Complications Exercise Tolerance Exercise Tolerance: Metabolic Equivalents>4 Pertinent Negatives Pertinent Negatives: No Symptoms of GERD, No Major Cardiovascular Symptoms or Complaints and No History of CVA/TIA Cardiac & Pulmonary Exam Cardiac Exam: Normal S1/S2 Heart Sounds Pulmonary Exam: Clear Bilateral Breath Sounds Implantable Cardiac Device Does patient have a Pacemaker or an ICD?: No Airway Exam Known Difficult Airway: No Mallampati Class: 2 Mouth Opening: Narrow (< 3cm) Thyromental Distance: Less than 3 cm Facial Hair: Full [place] Range of Motion: Limited ROM (slight) Neck Circumference: Normal Teeth Condition: Normal Dentition ASA Classification ASA Score: ASA 3 Emergency Case?: No NPO Status NPO Status: NPO Clears >2 hours, Solids >8 hours Anesthesia Plan Resuscitation Status: Full Code Anesthesia Technique: Spinal Anesthesia Airway Planned: Natural Airway Pain Management: Surgeon and patient request nerve block Monitors Used: Standard Monitors
--- NOTE | 2024-10-06 08:45 | BOWEL_PTH ---
PATIENT: Juve Hazel LOC: [facility] U#:[id number] AGE/SX: 64/M ROOM: RE10/06/[address]: Enrrique Vicente MD : 1960 BED: DIS: 10/06/2024 SPEC #: [id number] RECD: 10/06/24 12:51 STATUS: DELMY RE #: [id number] DAYSI: 10/06/24 08:[address]: Enrrique Vicente DEPT: Surgical Specimen RECD BY: Marcie Dyson Tissues: 1 - BIOPSY BOWEL 2 - BIOPSY BOWEL 3 - BIOPSY BOWEL 4 - BIOPSY BOWEL 5 - BIOPSY BOWEL 6 - BIOPSY BOWEL Procedures: GROSS AND MICRO LEVEL 4 Comments: [id number]
[2024-10-06 09:07] VITALS: BP 111/72; PULSE 65; RESP 16; TEMP 36.3; O2SAT 94
[2024-10-06 09:42] VITALS: BP 128/81; PULSE 55; RESP 19; TEMP 35.6; O2SAT 94
--- NOTE | 2024-10-06 10:01 | W.ANESPOSTOP ---
Postoperative Evaluation Date, Time and Location Date Performed: 10/06/24 Time Performed: 10:01 Patient Location: Day Surgery Unit Vital Signs Most Recent Imported Vital Signs: Most Recent Vital Signs Temp Pulse Resp BP Pulse Ox 35.6 C L 55 L 19 128/81 94 10/06/24 09:42 10/06/24 09:42 10/06/24 09:42 10/06/24 09:42 10/06/24 09:42 Pain Score Most Recent Pain Score: Most Recent Pain Score Pain Level 0 10/06/24 09:42 Assessment Mental Status: Awake (Alert & Oriented to Patient Baseline) Airway and Respiratory Function: Patent airway with normal (patient baseline) respiratory exam Cardiovascular Function: Hemodynamically Stable Hydration Status: Adequately Hydrated Nausea & Vomiting: No Nausea or Vomiting Pain: Pt. Denies Any Pain Peripheral Nerve Block: Patient did not receive a nerve block
== END 2024-10-06 10:00 | disposition home or self-care (01) ==
LOC: SUR 07:35
PROVIDERS: Visit Provider Surgery
PROC: 0DJD8ZZ Inspection of Lower Intestinal Tract, Via Natural or Artificial Opening Endoscopic (ICD-10-PCS; CPT 45378; principal; 2024-10-06 09:00)
DX: Z12.11 Encounter for screening for malignant neoplasm of colon (principal); K57.30 Diverticulosis of large intestine without perforation or abscess without bleeding; D12.4 Benign neoplasm of descending colon; D12.5 Benign neoplasm of sigmoid colon; D12.3 Benign neoplasm of transverse colon
CPT/HCPCS: 45385; 45380; 88305; J2704

== ENCOUNTER 2024-10-11 01:27 | Outpatient (CLI) | payer MEDICARE, SELFPAY ==
[2024-10-11 09:00] LABS: INR 1.4 (0.9-1.1); Prothrombin Time 13.9 sec (9.1-11.1)
== END 2024-10-11 01:28 | disposition home or self-care (01) ==
LOC: LBO 01:27
DX: I82.409 Acute embolism and thrombosis of unspecified deep veins of unspecified lower extremity (principal)
CPT/HCPCS: 36415; 85610

== ENCOUNTER 2024-10-24 08:53 | Outpatient (CLI) | payer MEDICARE, SELFPAY ==
[2024-10-24 08:55] LABS: INR 3.8 (0.9-1.1); Prothrombin Time 34.8 sec (9.1-11.1)
== END 2024-10-24 08:54 | disposition home or self-care (01) ==
LOC: LBO 08:53
DX: I82.409 Acute embolism and thrombosis of unspecified deep veins of unspecified lower extremity (principal)
CPT/HCPCS: 36415; 85610

== ENCOUNTER 2024-11-01 02:52 | Outpatient (CLI) | payer MEDICARE, SELFPAY ==
[2024-11-01 09:00] LABS: INR 2.0 (0.9-1.1); Prothrombin Time 19.5 sec (9.1-11.1)
== END 2024-11-01 02:53 | disposition home or self-care (01) ==
LOC: LBO 02:52
DX: I82.409 Acute embolism and thrombosis of unspecified deep veins of unspecified lower extremity (principal)
CPT/HCPCS: 36415; 85610